=== PATIENT | male | born 2000 | race Hispanic/Latino ===

== ENCOUNTER 2024-01-28 07:06 | Emergency (ER) | payer SELFPAY ==
[2024-01-28 07:08] VITALS: BP 119/71
[2024-01-28 07:18] VITALS: BMI 22.7
--- NOTE | 2024-01-28 07:36 | ED.GENMED ---
History of Present Illness
General
Chief Complaint: Headache
Source: patient
Time Seen by Provider: 01/28/24 07:16
History of Present Illness
History of Present Illness:
23-year-old male with no significant past medical history presenting to the emergency department for evaluation of generalized and somewhat nonspecific body pain describing intermittent headaches, abdominal pain, muscle aching, chest discomfort,
fatigue and generally feeling unwell. Patient states he had similar symptoms about 3 to 4 weeks ago which seemingly resolved spontaneously but then started up again over the last few days. Patient reports last night he had worsening headache
prompted him to come to the ER today. Notes that he has taken Tylenol with some relief for a few hours but symptoms then returned. Also has attempted some Tums for the abdominal pain which seem to have helped slightly as well. Patient denies any
fevers, chills, rigors, known sick contacts, recent travel or recent antibiotics. Social history was noncontributory.
Past History
Past History
ED Past Medical History: None
ED Past Surgical History: None
Social History
Tobacco: Non-smoker
Alcohol: None
Drug: None
Personal:
Living: with family
Review of Systems
Review of Systems
All Other Systems: ROS reviewed and negative except as documented in HPI and ROS
Phy Exam
Physical Exam
Physical Exam:
GENERAL: Alert , in no apparent distress
EYE: clear conjunctiva b/l
HEAD: NCAT
ENT: o/p clr, mmm.
CARDIAC: Regular rate and rhythm .
LUNGS: Clear breath sounds bilaterally, no acute respiratory distress, no wheezes/rales/rhonchi
ABDOMEN: Soft, without focal tenderness, no r/g, no cvat
NEUROLOGICAL: Alert and oriented
SKIN: Warm and dry, skin intact.
MUSCULOSKELETAL: No edema, well perfused.
PSYCH: Normal and appropriate interaction.
Scores
Heart Failure Risk
Heart Failure Risk Score: Not Applicable
Heart Score for Chest Pain Patients
STEMI patient?: No
History: Slightly or Non-Suspicious
ECG: Normal
Age: </= 45 years
Risk Factors: No Risk Factors
Troponin: </= Normal Limit
Heart Score for Chest Pain Patients: 0
Heart Score Risk: 2.5% MACE over next 6 weeks
Withdrawal Assessment of Alcohol
Withdrawal Assessment Completed?: Not applicable
Course
Orders/Labs/Results
Orders:
Orders
01/28/24 07:35
Electrocardiogram (*1) Urgent
Reason for Study: Abdominal Pain
EKG- Treatment ONCE
Ketorolac [Toradol] 30 mg IV NOW STA
01/28/24 07:40
Complete Blood Count/With Diff Urgent
Comprehensive Metabolic Panel Urgent
Lipase Urgent
Troponin I Urgent
01/28/24 08:37
0.9% Sodium Chloride 1000 ml [Nss] 1,000 ml IV BOLUS
Diphenhydramine [Benadryl] 25 mg IV NOW STA
Metoclopramide [Reglan] 10 mg IV NOW STA
Abnormal Lab Results
01/28/24
07:40
WBC 11.6 H 10^3/uL
(4.8-10.8)
MPV 11.0 H fL
(7.4-10.4)
Absolute Neuts (auto) 9.8 H 10^3/uL
(1.4-6.5)
Absolute Lymphs (auto) 0.8 L 10^3/uL
(1.2-3.4)
Absolute Monos (auto) 0.9 H 10^3/uL
(0.1-0.6)
Neutrophils % 83.9 H %
(42.2-75.2)
Lymphocytes % 6.4 L %
(20.5-51.1)
Glucose 114 H mg/dl
(70-99)
01/28/24 07:40
01/28/24 07:40
Vital Signs
Initial and Last Documented VS:
Initial Vital Signs
Temp Pulse Resp BP Pulse Ox
98.7 F 93 16 119/71 96
01/28/24 07:08 01/28/24 07:08 01/28/24 07:08 01/28/24 07:08 01/28/24 07:08
Last Documented Vital Signs
Temp Pulse Resp BP Pulse Ox
98.7 F 72 17 99/70 98
01/28/24 07:08 01/28/24 09:45 01/28/24 09:45 01/28/24 09:00 01/28/24 09:45
MDM/Problems Addressed
Differential Diagnosis Includes:
Viral syndrome, tension headache, migraine headache, minimal to no concern for any acute surgical pathology of the abdomen, patient without any risk factors for angina or CAD
MDM/Problems Addressed:
23-year-old male presenting to the emergency department for evaluation of generalized bodyaches, headache, chest discomfort, abdominal discomfort that has been waxing and waning for the better part of 2 to 3 weeks. Symptoms overall unchanged today
but states headache was slightly worse last night. No focal neurologic symptoms. No fevers or infectious symptoms. Patient arrives to the ER hemodynamically stable and overall quite well-appearing. Will check labs, EKG and treat symptoms with
Toradol. Reassessment following
*Pulse Oximetry
Patient hypoxic: no
*Critical Care Note
Total Time (30-74mins, 75-104mins- exclusive of procedures): Not Applicable
Data Reviewed
Further Testing Considered But Not Given:
CT of the head considered however given the other nonspecific symptoms I do not have concern for intracranial bleeding nor mass as potential cause for headache
Comment
Comment:
On re-evaluation patient noting body aches fully resolved. still with headache. reglan/benadryl and IVF ordered
Patient Management
Escalation/DeEscalation of care consider admission/obs:
Patient feeling much improved following second round of medications and feels comfortable being discharged home. Discussed return precautions to the ER. Patient is amenable to this. Stable for discharge home at this time.
ED Attending Note
-
Portions of this chart may have been created with voice recognition software.� Occasional wrong word or��sound alike� substitutions may have occurred due to the inherent limitations of voice recognition software.
Discharge Plan
Departure
Patient Disposition: Home (Routine Discharge)
Date of Disposition: 01/28/24
Time of Disposition: 09:46
Patient with high blood pressure during this ER visit?: No
Discharge Problem:
Headache
Instructions: Headache, Adult (DC)
Referrals:
NONE,* [Family Provider] -
Stand Alone Forms: Return to Work
Interventions
Interventions:
*Risk Screen - Suicide Last Done: 01/28/24 07:08
*General Assessment Last Done: 01/28/24 07:08
*Neglect/Abuse Screening Last Done: 01/28/24 07:08
ED- Fall Risk Assessment Last Done: 01/28/24 07:21
*ED COVID-19 Vaccine History Last Done: 01/28/24 07:18
*Nursing Disposition Last Done: 01/28/24 10:00
EA-Bcnhpx-Bkphpdztob Assessment Last Done: 01/28/24 07:18
ED- Neurological Assessment Last Done: 01/28/24 07:18
Discharge Date and Time
Discharge Date/Time: 01/28/24 10:00
Print Language: [place]
[2024-01-28 07:45] VITALS: BP 108/67
[2024-01-28] MEDS: TORADOL 30 MG IV (07:48)
[2024-01-28 07:58] LABS: % Basophils 0.2 % (0-2); % Eosinophils 1.1 % (0-6); % Immature Granulocytes 0.3 % (0-0.5); % Lymphocytes 6.4 % (20.5-51.1); % Monocytes 8.1 % (1.7-9.3); % Neutrophils 83.9 % (42.2-75.2); Absolute Eosinophils 0.1 10^3/uL (0-0.7); Absolute Lymphocytes 0.8 10^3/uL (1.2-3.4); Absolute Monocytes 0.9 10^3/uL (0.1-0.6); Absolute Neutrophils 9.8 10^3/uL (1.4-6.5); Hemoglobin 14.5 g/dL (13.0-18.0); Mean Corpuscular Hgb 28.7 pg (27.0-31.0); Mean Corpuscular Volume 87.1 fL (80.0-94.0); Nucleated Red Blood Cells % 0 % (-); Platelet Count 217 10^3/uL (130-400); Red Blood Cell Count 5.05 10^6/uL (4.70-6.10); Red Cell Dist. Width 13.3 % (11.5-14.5); White Blood Cell Count 11.6 10^3/uL (4.8-10.8)
[2024-01-28 08:00] VITALS: BP 103/68
[2024-01-28 08:11] LABS: ALT (SGPT) 18 U/L (0-50); AST (SGOT) 37 U/L (17-59); Albumin 4.9 g/dl (3.5-5.0); Alkaline Phosphatase 103 U/L (38-126); Blood Urea Nitrogen 20 mg/dl (9-20); Calcium 9.3 mg/dl (8.4-10.2); Carbon Dioxide 25 mmol/L (22-30); Chloride 102 mmol/L (98-107); Estimated Creatinine Clearance > 125 ml/min; Glucose 114 mg/dl (70-99); Lipase 64 U/L (23-300); Potassium 4.5 mmol/L (3.5-5.1); Sodium 138 mmol/L (135-145); Total Bilirubin 0.6 mg/dl (0.2-1.3); Total Protein 7.8 g/dl (6.3-8.2); eGFR > 60.00
[2024-01-28 08:22] LABS: Troponin I < 0.012 ng/ml
[2024-01-28] MEDS: NSS 1000 IV (08:55)
[2024-01-28] MEDS: BENADRYL 25 MG IV (08:56)
[2024-01-28] MEDS: REGLAN 10 MG IV (08:56)
[2024-01-28 09:00] VITALS: BP 99/70
== END 2024-01-28 10:00 | disposition home or self-care (01) ==
LOC: EMR 07:06
PROVIDERS: Physician Assistant Medical; EMERGENCY PHYSICIAN Student in an Organized Health Care Education/Training Program
DX: R51.9 Headache, unspecified (principal); R07.89 Other chest pain
CPT/HCPCS: 96374; 96375; 96361; 99284; 80053; 83690; 84484; 85025; 93005